=== PATIENT | female | born 1985 | race Hispanic/Latino ===

== ENCOUNTER 2020-07-05 17:28 | Emergency (ER) | payer MEDICAID ==
[2020-07-05 17:43] VITALS: BP 109/78
--- NOTE | 2020-07-05 18:05 | XRay Report ---
LEFT ANKLE 3 VIEW(S) INDICATION / CLINICAL INFORMATION: Pain COMPARISON: None available. FINDINGS: BONES / JOINT(S): No acute fracture or subluxation. Ankle mortise is symmetric. No significant arthri tis. SOFT TISSUES: There is soft tissue swelling of the ankle, greatest laterally. ADDITIONAL FINDINGS: None. IMPRESSION: Lateral ankle soft tissue swelling without acute osseous findings. Signer Name: Forrest Escobar MD Signed: 07/05/2020 6:01 PM Workstation Name: [id number]
--- NOTE | 2020-07-05 20:06 | Emergency Department Report ---
ED General Adult HPI - General Chief complaint: Extremity Injury, Lower Stated complaint: FOOT/ANKLE Time Seen by Provider: 07/05/20 19:23 Source: patient Mode of arrival: Ambulatory Limitations: No Limitations - History of Present Illness Initial comments: 34-year-old female patient presents with complaints of left ankle pain after a twist injury today. She rates her current pain as a 10/10 in severity and states it worsens with ambulation and movement. She denies any numbness/tingling/weakness of the foot. She denies having tried anything for pain. - Related Data Previous Rx's Medication Instructions Recorded Last Taken Type Acetaminophen/Codeine [Tylenol 1 tab PO Q8H PRN #4 tab 07/05/20 Unknown Rx /Codeine # 3 tab] Diclofenac Sodium 75 mg PO BID PRN #14 tablet. 07/05/20 Unknown Rx Allergies Allergy/AdvReac Type Severity Reaction Status Date / Time No Known Allergies Allergy Unverified 07/05/20 17:35 ED Review of Systems ROS: Stated complaint: FOOT/ANKLE Other details as noted in HPI Constitutional: denies: chills, fever, malaise Musculoskeletal: joint swelling, arthralgia Skin: denies: change in color Neurological: abnormal gait ED Past Medical Hx - Past Medical History Previous Medical History?: No - Surgical History Additional Surgical History: tubal ligation, gallbladder - Social History Smoking Status: Current Every Day Smoker - Medications Home Medications: Home Medications Medication Instructions Recorded Confirmed Last Taken Type Acetaminophen/Codeine [Tylenol 1 tab PO Q8H PRN #4 tab 07/05/20 Unknown Rx /Codeine # 3 tab] Diclofenac Sodium 75 mg PO BID PRN #14 tablet. 07/05/20 Unknown Rx ED Physical Exam - General Limitations: No Limitations General appearance: alert, in no apparent distress, obese - Head Head exam: Present: atraumatic, normocephalic - Respiratory Respiratory exam: Absent: respiratory distress - Cardiovascular Cardiovascular Exam: Present: regular rate - Extremities Exam Extremities exam: Present: other (Moderate swelling to the left ankle noted without bruising overlying erythema; normal pedal pulse and sensation is noted) - Back Exam Back exam: Present: normal inspection - Neurological Exam Neurological exam: Present: alert, oriented X3 - Psychiatric Psychiatric exam: Present: normal affect, normal mood ED Course Vital Signs 07/05/20 17:33 Temperature 97.9 F Pulse Rate 87 Respiratory 18 Rate Blood Pressure 109/78 O2 Sat by Pulse 97 Oximetry ED Medical Decision Making - Radiology Data Radiology results: report reviewed LEFT ANKLE 3 VIEW(S) INDICATION / CLINICAL INFORMATION: Pain COMPARISON: None available. FINDINGS: BONES / JOINT(S): No acute fracture or subluxation. Ankle mortise is symmetric. No significant arthritis. SOFT TISSUES: There is soft tissue swelling of the ankle, greatest laterally. ADDITIONAL FINDINGS: None. IMPRESSION: Lateral ankle soft tissue swelling without acute osseous findings. - Medical Decision Making 34-year-old female patient presents with complaints of left ankle pain after a twist injury today. She rates her current pain as a 10/10 in severity and states it worsens with ambulation and movement. She denies any numbness/tingling/weakness of the foot. She denies having tried anything for pain. No fracture noted on x-ray. Patient placed in Samuel wrap and provided with crutches. Discussed rice method for treatment. Recommend follow-up with orthopedics as needed, referral provided. Strict return precautions were discussed in detail with patient who verbalizes understanding. Critical care attestation.: If time is entered above; I have spent that time in minutes in the direct care of this critically ill patient, excluding procedure time. ED Disposition Clinical Impression: Left ankle sprain Qualifiers: Encounter type: initial encounter Involved ligament of ankle: other ligament Qualified Code(s): S93.492A - Sprain of other ligament of left ankle, initial encounter Disposition: DC- TO HOME OR SELFCARE Is pt being admited?: No Condition: Stable Instructions: Ankle Sprain Prescriptions: Diclofenac Sodium 75 mg PO BID PRN #14 tablet. PRN Reason: pain Acetaminophen/Codeine [Tylenol /Codeine # 3 tab] 1 tab PO Q8H PRN #4 tab PRN Reason: Pain , Severe (7-10) Referrals: [facility] [Provider Group] - 3-5 Days Forms: Work/School Release Form(ED)
[2020-07-05] MEDS ORDERED: IBUPROFEN 800 MG TAB PO ONE (20:25)
[2020-07-05] MEDS ORDERED: oxyCODONE /ACETAMINOPHEN 5-325MG TAB PO ONE (20:25)
== END 2020-07-05 20:51 | disposition home or self-care (01) ==
LOC: ED 17:28
DX: S93.402A Sprain of unspecified ligament of left ankle, initial encounter (principal); F17.200 Nicotine dependence, unspecified, uncomplicated; Z98.51 Tubal ligation status; Z98.890 Other specified postprocedural states; Z79.899 Other long term (current) drug therapy; X58.XXXA Exposure to other specified factors, initial encounter; Y93.89 Activity, other specified; Y92.89 Other specified places as the place of occurrence of the external cause; Y99.8 Other external cause status